=== PATIENT | female | born 1995 | race Caucasian/White ===

== ENCOUNTER 2021-05-07 22:16 | Emergency (ER) | payer OTHER, SELFPAY ==
[2021-05-07 22:22] VITALS: BP 167/92; PULSE 87; TEMP 36.8; O2SAT 99
--- NOTE | 2021-05-07 22:30 | DI.RAD_ITS ---
Exam(s) XR ANKLE RT COMPLETE EXAM: XR ANKLE RT COMPLETE CLINICAL HISTORY: right abkle pain post twist , lat TECHNIQUE: COMPARISON: No exams were available for comparison FINDINGS: Three views were obtained. There is mild soft tissue swelling of the ankle particularly adjacent to the lateral malleolus. There is no evidence of fracture. Ankle mortise is well maintained. IMPRESSION: RADIATION DOSE DELIVERED: Total DLP
--- NOTE | 2021-05-07 22:48 | ED.GENADUL_ITS ---
Discharge Plan Disposition Patient Disposition: HOME Condition: Good Discharge Details Clinical Impression: Strain of ankle Primary Care Provider: Unknown,Unknown ED Provider: Jovana Morris Home Meds and New Rx's Prescriptions: No Action No Known Home Meds RF: 0 Discharge Instructions Additional Instructions: Use your boot as needed for support Repeat x-ray in 1 week if persistent pain Ibuprofen and Tylenol for pain control Return earlier should you have new or worsening complaints including numbness, tingling, dramatic change in pain Medical Decision Making X-ray does not show evidence of acute abnormality per my review and radiologist interpretation Ibuprofen and Tylenol for pain control given today at patient request Repeat x-ray in 1 week with persistent pain No evidence of open fracture Pending official radiologist overread Differential Diagnosis Differential Diagnosis: Fracture, strain, contusion, abrasion Medical Records Medical records reviewed: Yes I reviewed the patient's medical records. Lab Data Lab results reviewed: Yes I reviewed the patient's lab results. ECG Data Prior ECG tracings: available for review HPI This 26-year-old female presents with reports of right ankle pain after twisting her ankle. She states that predominantly lateral. She denies any strength or sensation change. She denies chance of . She denies any knee pain. General Date/Time Provider Initiated Documentation: 05/07/21 22:31 . Related Data Home Medications Medication Instructions Recorded Confirmed Unknown [No Known Home Meds] 05/07/21 05/07/21 Allergies Allergy/AdvReac Type Severity Reaction Status Date / Time hydrocodone [From Vicodin] Allergy Intermediate Hives Unverified 05/07/21 22:26 acetaminophen AdvReac Intermediate Nausea Unverified 05/07/21 22:26 General Stated Complaint: Orthopedic ALMA: 4 Review of Systems Narrative: Review of systems obtained x3 aside from where indicated in HPI [facility] Social History Smoking/Tobacco Use Status: Never Smoking risk assessment performed?: Yes Alcohol Intake: never Substance use type: does not use Do you feel safe at home: Yes Exam Const General: cooperative and no acute distress Extrem Other: Right lateral malleolus pain, no visible evidence of trauma, neurovascularly intact, no tenderness with palpatio to right knee. Course Vital Signs Vital signs: Vital Signs Temperature 36.8 C 05/07/21 22:22 Pulse 87 05/07/21 22:22 Blood Pressure 167/92 H 05/07/21 22:22 Pulse Oximetry 99 06/21/21 22:22 Temperature 36.8 C 05/07/21 22:22 Temperature Source Skin 05/07/21 22:22 Pulse 87 05/07/21 22:22 Respiratory Effort Non-Labored 05/07/21 22:27 Blood Pressure 167/92 H 05/07/21 22:22 Blood Pressure Position Sitting 05/07/21 22:22 Pulse Oximetry 99 05/07/21 22:22 Oxygen Delivery Method Room Air 05/07/21 22:22 Oxygen Flow Rate 0 05/07/21 22:22 Pain Level 10 05/07/21 22:27
--- NOTE | 2021-05-08 00:02 | DI.VRAD_ITS ---
PROCEDURE INFORMATION: Exam: XR Right Ankle Exam date and time: 05/07/2021 10:32 PM Age: 26 years old Clinical indication: Patient HX: Right ankle pain post twist TECHNIQUE: Imaging protocol: XR Right ankle. Views: 3 or more views. COMPARISON: No relevant prior studies available. FINDINGS: Bones/joints: Normal anatomic alignment. There is no evidence of acutely displaced fractures. There is no evidence of joint dislocation. No aggressive osseous lesions. Soft tissues: Mild soft tissue swelling about the lateral malleolus. IMPRESSION: 1. Negative for acute skeletal pathology. 2. Mild soft tissue swelling about the lateral malleolus. Dictated and Authenticated by: Austen Capps MD. Ordering:KEMI Whaley MD
== END 2021-05-07 23:10 | disposition home or self-care (01) ==
PROVIDERS: Emergency Provider Physician Assistant
DX: S96.811A Strain of other specified muscles and tendons at ankle and foot level, right foot, initial encounter (principal); X50.1XXA Overexertion from prolonged static or awkward postures, initial encounter
CPT/HCPCS: 29515; 99283; 73610